=== PATIENT | female | born 1980 | race American Indian/Alaskan Native ===

== ENCOUNTER 2021-07-27 07:23 | Observation (INO) | payer OTHER ==
[2021-07-27] MEDS ORDERED: ASPIRIN EC 325 MG TAB PO NR (07:46)
[2021-07-27] MEDS ORDERED: SODIUM CHLORIDE 0.9% 500 ML 500 ML IV SCH (08:00)
[2021-07-27 08:14] LABS: Basophils % (Auto) 0.7 % (0.0-1.8); Eosinophils % (Auto) 1.3 % (0.0-4.3); Hematocrit 39.3 % (30.3-42.9); Hemoglobin 13.3 gm/dl (10.1-14.3); Lymphocytes % (Auto) 27.7 % (13.4-35.0); Mean Corpuscular HGB Conc 34 % (30-34); Mean Corpuscular Volume 98 fl (79-97); Monocytes # (Auto) 0.5 K/mm3 (0.0-0.8); Monocytes % (Auto) 15.5 % (0.0-7.3); Platelet Count 261 K/mm3 (140-440); Red Blood Count 4.02 M/mm3 (3.65-5.03); Red Cell Distribution Width 13.6 % (13.2-15.2)
[2021-07-27 08:24] LABS: INR 0.98 (0.87-1.13)
[2021-07-27 08:25] LABS: Blood Urea Nitrogen 16 mg/dL (7-17); Calcium 9.2 mg/dL (8.4-10.2); Hemolysis Index 29
[2021-07-27 08:38] LABS: BUN/Creatinine Ratio 23
[2021-07-27] MEDS ORDERED: HEPARIN/NS 5000 UNIT/500ML 1,000 ML IR ONE (09:21)
[2021-07-27] MEDS: fentaNYL 100 MCG/2 ML INJ ONE ×4 (09:49→10:35)
[2021-07-27] MEDS: LIDOCAINE (2%) 20 MG/1 ML VIAL 20 ML MDV INFILTRATI ONE ×2 (09:49→10:19)
[2021-07-27] MEDS: MIDAZOLAM 2 MG/2 ML INJ ONE ×3 (09:49→10:20)
[2021-07-27] MEDS: HEPARIN 10,000 UNITS/10 ML VIAL ONE ×4 (09:50→11:12)
[2021-07-27] MEDS: VERAPAMIL 5 MG/2 ML INJ ONE ×2 (09:50→10:21)
[2021-07-27] MEDS: NITROGLYCERIN SYRINGE 3 ML ONE ×2 (09:51→10:21)
[2021-07-27] MEDS ORDERED: MIDAZOLAM 2 MG/2 ML INJ ONE (10:46)
[2021-07-27] MEDS ORDERED: fentaNYL 100 MCG/2 ML INJ ONE (10:46)
[2021-07-27] MEDS ORDERED: NITROGLYCERIN SYRINGE 3 ML ONE (11:03)
[2021-07-27] MEDS ORDERED: CLOPIDOGREL 300 MG TAB ONE (11:08)
[2021-07-27] MEDS ORDERED: ALUM-MAG HYDROXIDE-SIMETHICONE 200-200-20MG/5ML ORAL LIQD 30 ML ONE (11:08)
--- NOTE | 2021-07-27 11:20 | Electrocardiograph Report ---
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
[2021-07-27] MEDS ORDERED: ONDANSETRON 4 MG/2 ML INJ IV PRN (11:31)
[2021-07-27] MEDS ORDERED: ZOLPIDEM 5 MG TAB PO PRN (11:31)
[2021-07-27] MEDS ORDERED: HYDROcodone/ACETAMINOPHEN 5-325 MG TAB PO PRN ×2 (11:31→12:16)
[2021-07-27] MEDS ORDERED: ACETAMINOPHEN 325 MG TAB PO PRN ×2 (11:31→12:16)
[2021-07-27] MEDS ORDERED: traMADol 50 MG TAB PO PRN (11:31)
--- NOTE | 2021-07-27 11:36 | Event Note ---
Date: 07/27/21 Patient presented for outpatient cardiac catheterization, indication chest pain and abnormal thallium. We found diffuse moderately severe in-stent restenosis of the mid LAD, and she was treated with additional drug-eluting stent to the mid LAD, no complications. Patient will be admitted overnight observation, anticipate discharge in the morning on dual oral antiplatelet therapy with aspirin and Plavix, Imdur 30 mg daily added to her regimen.
[2021-07-27] MEDS ORDERED: NON-FORMULARY EACH (Lisinopril/Hydrochlorothiazide [Zestoretic 10-12.5 Mg Tablet] 1 EACH T PO SCH (11:45)
[2021-07-27] MEDS ORDERED: SODIUM CHLORIDE 0.9% 1000 ML 1,000 ML IV SCH (11:45)
[2021-07-27] MEDS ORDERED: hydroCHLOROthiazide 12.5 MG CAP PO SCH (12:00)
[2021-07-27] MEDS ORDERED: LISINOPRIL 10 MG TAB PO SCH (12:00)
--- NOTE | 2021-07-27 12:16 | Cardiac Catherization Report ---
DATE OF SERVICE: 07/27/2021 CARDIAC CATHETERIZATION AND CORONARY ANGIOPLASTY REPORT REASON FOR PROCEDURE: The patient is a 41-year-old woman with a history of coronary artery disease and prior coronary stenting in 2007. She presented with recurrent chest pain and an abnormal thallium stress test for outpatient cardiac catheterization. PROCEDURES: 1. Left heart catheterization. 2. Selective left and right coronary angiography. 3. Left ventricular angiography. 4. Coronary angioplasty and stenting of the mid left anterior descending artery. 5. Sedation time start 10:18, end 11:05. DESCRIPTION OF PROCEDURE: The patient was prepped and draped in a sterile fashion after informed consent. The right radial cath site was prepped and draped after negative Mark's test. The right radial artery was entered using Seldinger technique followed by placement of a 6-Polish hydrophilic sheath. Routine radial cocktail was administered via the sheath. Selective left and right coronary angiography was performed using a #3.5 left Clarence and a 4 right Clarence. Left ventricular angiography was performed using the right Clarence catheter. The angiograms were reviewed: CORONARY ANGIOGRAPHY: The left main coronary artery was short, free of significant disease. There was a long stented segment of the mid LAD. The stented segment contained diffuse moderate to severe in-stent restenosis, with up to 75% luminal stenosis. Beyond the stent, the apical tip of the LAD was occluded. This was a chronic total occlusion of the distal LAD beyond the apex. Aside from the in-stent restenosis and the distal chronic occlusion, the remainder of the LAD and diagonal branches were angiographically normal. The circumflex was a large and dominant vessel, this vessel and its obtuse marginal branches appeared angiographically normal. The right coronary artery was a small, nondominant and also free of significant disease. There was mild left ventricular systolic dysfunction, ejection fraction 40-45%. There was mild to moderate hypokinesis of the anterior wall. CORONARY ANGIOPLASTY: After review of the angiograms, we recommended ad hoc coronary intervention to the mid LAD in-stent restenosis. We selected a #3.5 left Clarence guiding catheter. After cannulation of the left coronary vessel with a guider, we transitioned a Whisper wire into the LAD, successfully across the lesional segment. After wire placement in the distal LAD, we then deployed in a primary stenting maneuver, a 3.0 x 30 mm drug-eluting stent, and inflated the stent to optimal pressures. Following stenting, predilatation angioplasty was then performed using a 3.5 mm noncompliant balloon. Following angioplasty and stenting and post-dilatation, there was an excellent angiographic result and zero residual stenosis. There was NYDIA 3 flow through the LAD. The distal chronic occlusion of the LAD beyond the apex was not intervened upon and was unchanged following the mid LAD intervention. The catheters and wires were removed, sheath removed and hemostasis achieved using an Angio-Seal device. The patient was returned to the postprocedure unit in stable condition. There were no complications. CONCLUSION: 1. Coronary artery disease with moderately severe diffuse in-stent restenosis of the mid LAD stent. 2. Successful coronary stenting of the mid LAD in-stent restenosis, excellent angiographic result following deployment of a 3.0 mm drug-eluting stent, postdilated with a 3.5 mm NC balloon. 3. Chronic total occlusion of the distal, tip of the LAD beyond the apex, unchanged, for medical therapy. 4. The rest of the coronary system was otherwise angiographically normal. 5. Mild left ventricular systolic dysfunction with hypokinesis of the anterior wall. TID: [id number] RECEIPT: [id number] CA/AMI
[2021-07-27] MEDS: METOPROLOL SUCCINATE XL 100 MG TAB PO SCH (13:48)
[2021-07-27] MEDS: LISINOPRIL 10 MG TAB PO SCH (15:15)
[2021-07-27] MEDS: hydroCHLOROthiazide 12.5 MG CAP PO SCH (15:15)
[2021-07-28 05:39] LABS: Basophils % (Auto) 0.5 % (0.0-1.8); Eosinophils # (Auto) 0.1 K/mm3 (0.0-0.4); Eosinophils % (Auto) 1.9 % (0.0-4.3); Hematocrit 38.6 % (30.3-42.9); Lymphocytes # (Auto) 1.3 K/mm3 (1.2-5.4); Lymphocytes % (Auto) 33.2 % (13.4-35.0); Mean Corpuscular HGB Conc 34 % (30-34); Mean Corpuscular Volume 98 fl (79-97); Monocytes # (Auto) 0.6 K/mm3 (0.0-0.8); Monocytes % (Auto) 14.6 % (0.0-7.3); Platelet Count 265 K/mm3 (140-440); Red Blood Count 3.95 M/mm3 (3.65-5.03); Red Cell Distribution Width 13.6 % (13.2-15.2)
[2021-07-28 06:33] LABS: Blood Urea Nitrogen 10 mg/dL (7-17); Calcium 8.8 mg/dL (8.4-10.2); Hemolysis Index 2
[2021-07-28 06:57] LABS: BUN/Creatinine Ratio 14
[2021-07-28 07:16] LABS: Chol/HDL Ratio 2.73 %; HDL Cholesterol 42 mg/dL (40-59); LDL Cholesterol,Direct 68 mg/dL (50-130)
--- NOTE | 2021-07-28 08:25 | XRay Report ---
CHEST 1 VIEW INDICATION: post pci. COMPARISON: None FINDINGS: SUPPORT DEVICES: None. HEART: Within normal limits. A small cardiac stent is seen over the left heart border. LUNGS/PLEURA: No acute air space or interstitial disease. ADDITIONAL FINDINGS: None. IMPRESSION: 1. No acute findings. Signer Name: Stanley Roque MD Signed: 07/28/2021 8:21 AM Workstation Name: [id number]
[2021-07-28] MEDS ORDERED: CLOPIDOGREL 75 MG TAB PO SCH (10:00)
[2021-07-28] MEDS ORDERED: ASPIRIN EC 81 MG TAB PO SCH (10:00)
[2021-07-28] MEDS: METOPROLOL SUCCINATE XL 100 MG TAB PO SCH (10:13)
[2021-07-28] MEDS: hydroCHLOROthiazide 12.5 MG CAP PO SCH (10:13)
[2021-07-28] MEDS: LISINOPRIL 10 MG TAB PO SCH (10:13)
--- NOTE | 2021-07-28 10:26 | Electrocardiograph Report ---
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
--- NOTE | 2021-07-28 10:30 | Electrocardiograph Report ---
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
[2021-07-28 10:46] VITALS: BP 142/91
--- NOTE | 2021-07-28 18:19 | Progress Note ---
Subjective Date of service: 07/28/21 [facility] Objective Vital Signs Temp Pulse Resp BP Pulse Ox 07/28/21 11:45 96 07/28/21 10:00 73 07/28/21 08:14 98.4 F 74 18 142/91 99 07/28/21 05:10 99 07/28/21 03:33 98.2 F 69 16 129/76 100 07/28/21 00:00 66 07/27/21 23:01 97.6 F 78 18 144/84 100 07/27/21 19:21 98.3 F 67 16 148/92 100 07/27/21 18:38 98 07/27/21 18:33 78 - Physical Examination General: No Apparent Distress HEENT: Positive: PERRL Neck: Positive: neck supple Lungs: Positive: clear to auscultation Abdomen: Positive: Unremarkable Skin: Positive: Clear Extremities: Present: normal - Labs and Meds Lipids 07/28/21 Range/Units 04:53 Triglycerides 60 (2-149) mg/dL Cholesterol 115 (50-199) mg/dL HDL Cholesterol 42 (40-59) mg/dL Cholesterol/HDL Ratio 2.73 % CBC 07/28/21 Range/Units 04:53 WBC 3.8 L (4.5-11.0) K/mm3 RBC 3.95 (3.65-5.03) M/mm3 Hgb 13.0 (10.1-14.3) gm/dl Hct 38.6 (30.3-42.9) % Plt Count 265 (140-440) K/mm3 Lymph # (Auto) 1.3 (1.2-5.4) K/mm3 Worth # (Auto) 0.6 (0.0-0.8) K/mm3 Eos # (Auto) 0.1 (0.0-0.4) K/mm3 Baso # (Auto) 0.0 (0.0-0.1) K/mm3 Comprehensive Metabolic Panel 07/28/21 Range/Units 04:53 Sodium 135 L (137-145) mmol/L Potassium 3.6 (3.6-5.0) mmol/L Chloride 103.2 (98-107) mmol/L Carbon Dioxide 22 (22-30) mmol/L BUN 10 (7-17) mg/dL Creatinine 0.7 (0.6-1.2) mg/dL Glucose 92 (65-100) mg/dL Calcium 8.8 (8.4-10.2) mg/dL
== END 2021-07-28 19:10 | disposition home or self-care (01) ==
LOC: CATHLABREC 07:23 → 4A 12:16
PROVIDERS: ADMIT Internal Medicine Cardiovascular Disease; ATTEND Internal Medicine Cardiovascular Disease
DX: I25.10 Atherosclerotic heart disease of native coronary artery without angina pectoris (principal); I10 Essential (primary) hypertension; E78.5 Hyperlipidemia, unspecified; D64.9 Anemia, unspecified; E66.01 Morbid (severe) obesity due to excess calories; Z95.1 Presence of aortocoronary bypass graft; Z79.82 Long term (current) use of aspirin; Z98.61 Coronary angioplasty status
CPT/HCPCS: 36415; 71045; 80048; 80061; 84484; 85025; 85610; 93005; 93458; 96360; 96361; A9270; C1725; C1769; C1874; C1887; C1894; C9600; G0378; J1644; J2250; J3010; J7030; J7040; 92928; Q9967